=== PATIENT | male | born 1950 | race African-American/Black ===

== ENCOUNTER → 2021-01-01 | Outpatient (CLI) | payer BC, MEDICARE ==
[~2021-01-01] MED LIST: IOHEXOL 300 MG/ML 75 ML VIAL. IV ONE
[2021-01-01 08:35] LABS: CREATININE 1.2 mg/dL (0.7-1.3); GFR 72.2
--- NOTE | 2021-01-01 09:59 | RAD ---
PQRS Compliance Statement: One or more of the following individualized dose reduction techniques were utilized for this examinat ion: 1. Automated exposure control 2. Adjustment of the mA and/or kV according to patient size 3. Use of iterative reconstruction technique Exam performed: CT scan of the chest with contrast Indication: Hypoxia. History of non-Hodgkin's lymphoma 11 years ago in remission Date of Service: 01/01/2021. Comparison:CT chest from 08/14/2010 Technique: Contiguous helical acquisitions are obtained through the chest during intravenous administ ration ofIV contrast. In addition sagital and coronal reformatted images are obtained and reviewed. CT chest findings: The structures at the thoracic inlet including both lobes of the thyroid gland appear normal. The nec k and intrathoracic great vessels appear grossly normal in caliber. Diffuse scattered atheromatous ca lcification of the aortic knob is seen No large filling defects to suggest pulmonary embolism noted. Multiple bilateral enlarged axillary lymph nodes are seen which appear significantly smaller as leidy red to the prior CT chest from 2010. There is no dominant mediastinal or hilar lymph node enlargemen t noted. The central airway is patent without endoluminal lesions. Tiny pleural-based 2 mm nodule is seen in the lateral apical segment left lower lobe. No additional p ulmonary nodules or masses are identified. There is no pleural effusion or pneumothorax. Limited evaluation of upper abdominal structures is unremarkable. Bones are normal Impression: 1. Multiple enlarged bilateral axillary lymph nodes are seen. These however appear significantly impr marcela since prior CT scan of August 14, 2010. Patient has a given history of non-Hodgkin's lymphoma in remission abnormally enlarged lymph nodes may be related to the patient's known diagnosis. Electronically signed by: Bozena Pillai MD (01/01/2021 9:57 AM) [facility]
== END ==
LOC: CT 07:43
PROVIDERS: ATTEND Family Medicine
DX: Z01.812 Encounter for preprocedural laboratory examination (principal); I70.0 Atherosclerosis of aorta; R59.0 Localized enlarged lymph nodes; J94.8 Other specified pleural conditions; Z85.72 Personal history of non-Hodgkin lymphomas
CPT/HCPCS: 36415; 71260; 82565; Q9967